=== PATIENT | male | born 1990 | race Caucasian/White ===

== ENCOUNTER 2016-11-07 13:31 | Emergency (ER) | payer OTHER ==
[~2016-11-07] VITALS: Ht 182.9 cm; Wt 99.2 kg
[2016-11-07] MEDS ORDERED: KENALOG,ARISTOC80 GM TP (15:08)
[2016-11-07 15:23] VITALS: BP 132/84
== END 2016-11-07 15:24 | disposition home or self-care (01) ==
LOC: EME 13:31
DX: L50.9 Urticaria, unspecified (principal)
CPT/HCPCS: 99281; 99282